=== PATIENT | male | born 1960 | race Caucasian/White ===

== ENCOUNTER 2017-04-12 15:33 | Inpatient (IN) | payer OTHER ==
[2017-04-12 15:54] LABS: I-STAT BLOOD UREA NITROGEN 12 MG/DL (5-21); I-STAT CHLORIDE 89 MMOL/L (102-111); I-STAT CREATININE 0.7 MG/DL (0.6-1.3); I-STAT GLUCOSE 214 MG/DL (68-110); I-STAT HEMOGLOBIN (CALC.) 13.6 G/DL (13.0-17.0); I-STAT POTASSIUM 3.5 MMOL/L (3.6-5.0); I-STAT SODIUM 130 MMOL/L (137-144)
[2017-04-12 15:55] LABS: AUTOMATED NEUTROPHIL # 18.5 TH/MM3 (1.8-7.7); BASOPHIL # 0.1 TH/MM3 (0-0.2); BASOPHIL % 0.4 % (0.0-2.0); HEMATOCRIT 40.6 % (39.0-51.0); HEMO FLAGS DIFF FINAL; HEMOGLOBIN 14.4 GM/DL (13.0-17.0); LYMPH % 4.2 % (9.0-44.0); LYMPHOCYTE # 0.8 TH/MM3 (1.0-4.8); MEAN CELL VOLUME 110.9 FL (80.0-100.0); MEAN CORPUSCULAR HEMOGLOBIN 39.3 PG (27.0-34.0); MEAN CORPUSCULAR HGB CONC 35.4 % (32.0-36.0); MEAN PLATELET VOLUME 7.7 FL (7.0-11.0); MONO % 3.9 % (0.0-8.0); MONOCYTE # 0.8 TH/MM3 (0-0.9); NEUT % 91.5 % (16.0-70.0); PLATELET COUNT 151 TH/MM3 (150-450); RED BLOOD COUNT 3.66 MIL/MM3 (4.50-5.90); RED CELL DISTRIBUTION WIDTH 15.6 % (11.6-17.2); WHITE BLOOD COUNT 20.2 TH/MM3 (4.0-11.0)
[2017-04-12] MEDS: IOHEXOL 350 MG/ML 10 ML VIAL (for RAD DIAG) IVCONTRAST (15:55)
[2017-04-12 16:06] LABS: APTT (PATIENT) 24.2 SEC (24.3-30.1); INTERNATIONAL NORMALIZED RATIO 1.1 RATIO; PROTHROMBIN TIME - PATIENT 10.9 SEC (9.8-11.6)
[2017-04-12 16:22] LABS: ALCOHOL LESS THAN 3 MG/DL (0-5)
[2017-04-12] MEDS: LORazepam 2 MG/ML VIAL ×2 (18:20)
[2017-04-12] MEDS ORDERED: LORazepam 2 MG/ML VIAL IV PUSH ×2 (21:15)
[2017-04-12] MEDS ORDERED: ONDANSETRON HCL 4 MG/2 ML VIAL IV PUSH (21:15)
[2017-04-12] MEDS ORDERED: FLUMAZENIL 0.5 MG/5 ML VIAL IV PUSH (21:15)
[2017-04-12] MEDS ORDERED: BISACODYL 10 MG SUPP RECTAL (21:15)
[2017-04-12] MEDS ORDERED: MAGNESIUM HYDROXIDE SUSP 30 ML CUP PO (21:15)
[2017-04-12] MEDS ORDERED: LORazepam 1 MG TAB PO (21:15)
[2017-04-12] MEDS ORDERED: RESP: ALBUTEROL 2.5 MG/IPRATROPIUM 0.5 MG NEB (PRN) INH (21:15)
[2017-04-12] MEDS: MISCELLANEOUS NURSING INFORMATION XX (21:15)
[2017-04-12] MEDS ORDERED: SODIUM CHLORIDE 0.9% FLUSH 10 ML FLUSH IV FLUSH (21:15)
[2017-04-12] MEDS ORDERED: CHLORHEXIDINE GLUCONATE 2 % 1 PACK (2 CLOTHS) TOP (21:15)
[2017-04-12] MEDS ORDERED: SENNOSIDES 8.6 MG TAB PO (21:15)
[2017-04-12] MEDS ORDERED: ACETAMINOPHEN 325 MG TAB PO (21:15)
[2017-04-12] MEDS ORDERED: LACTULOSE SYRUP 20 GM/30 ML CUP PO (21:15)
[2017-04-12] MEDS: SODIUM CHLOR 0.9% 1000 ML INJ 1,000 ML IV (21:57)
[2017-04-12] MEDS: HEPARIN SODIUM - SQ 10,000 UNITS/ML VIAL SQ (21:58)
[2017-04-12] MEDS: FOSPHENYTOIN INJ 1,000 MGPE in SODIUM CHLORIDE 0.9% INJ 50 ML IV (22:26)
[2017-04-12] MEDS: LORazepam 2 MG TAB PO (22:45)
[2017-04-12] MEDS: LORazepam 2 MG/ML VIAL IV PUSH ×5 (22:45→23:45)
[2017-04-12] MEDS: MORPHINE SULFATE 2 MG/ML INJ IV PUSH ×2 (23:10)
[2017-04-13] MEDS: LORazepam 2 MG/ML VIAL IV PUSH ×2 (00:43→02:49)
[2017-04-13] MEDS: MIDAZOLAM HCL 2 MG/2 ML VIAL IV PUSH (01:00)
[2017-04-13] MEDS: CHLORHEXIDINE GLUCONATE 2 % 1 PACK (2 CLOTHS) TOP (01:19)
[2017-04-13 03:31] LABS: MRSA PCR SURVEILLANCE MRSA NOT DETECTED (NOT DETECT)
[2017-04-13 04:27] LABS: HEMATOCRIT 36.4 % (39.0-51.0); HEMOGLOBIN 13.1 GM/DL (13.0-17.0); MEAN CELL VOLUME 111.7 FL (80.0-100.0); MEAN CORPUSCULAR HEMOGLOBIN 40.1 PG (27.0-34.0); MEAN CORPUSCULAR HGB CONC 35.9 % (32.0-36.0); MEAN PLATELET VOLUME 7.9 FL (7.0-11.0); PLATELET COUNT 102 TH/MM3 (150-450); RED BLOOD COUNT 3.26 MIL/MM3 (4.50-5.90); RED CELL DISTRIBUTION WIDTH 15.8 % (11.6-17.2); WHITE BLOOD COUNT 19.3 TH/MM3 (4.0-11.0)
[2017-04-13 04:33] LABS: APTT (PATIENT) 27.7 SEC (24.3-30.1); INTERNATIONAL NORMALIZED RATIO 1.1 RATIO; PROTHROMBIN TIME - PATIENT 11.1 SEC (9.8-11.6)
[2017-04-13 04:41] LABS: LACTIC ACID 1.9 mmol/L (0.4-2.0)
[2017-04-13 04:41] LABS: HEMO FLAGS AUTO DIFF
[2017-04-13 04:52] LABS: ALT (GPT) 27 U/L (12-78); ANION GAP 11 MEQ/L (5-15); AST (GOT) 60 U/L (15-37); BICARBONATE 27.1 MEQ/L (21.0-32.0); BLOOD UREA NITROGEN 20 MG/DL (7-18); CHLORIDE 98 MEQ/L (98-107); CREATININE 0.62 MG/DL (0.60-1.30); GLOMERULAR FILTRATION RATE 112 ML/MIN (>89); GLUCOSE,RANDOM 137 MG/DL (74-106); MAGNESIUM 1.2 MG/DL (1.5-2.5); PHOSPHORUS 2.8 MG/DL (2.5-4.9); SODIUM (NA) 136 MEQ/L (136-145)
[2017-04-13 04:55] LABS: ALKALINE PHOSPHATASE 85 U/L (45-117); TOTAL BILIRUBIN ADULT 3.5 MG/DL (0.2-1.0); TOTAL PROTEIN 5.7 GM/DL (6.4-8.2)
[2017-04-13] MEDS ORDERED: DEXMEDETOMIDINE INJ 200 MCG in SODIUM CHLORIDE 0.9% INJ 50 ML IV (05:15)
[2017-04-13] MEDS: SODIUM CHLOR 0.9% 1000 ML INJ 1,000 ML IV ×4 (05:54→21:15)
[2017-04-13] MEDS: HEPARIN SODIUM - SQ 10,000 UNITS/ML VIAL SQ ×3 (05:54→21:42)
[2017-04-13] MEDS: DEXMEDETOMIDINE 200 MCG in NS 48 ML IV ×2 (06:09→08:10)
[2017-04-13 06:53] LABS: BANDS 10 % (0-6); LYMPHOCYTES 1 % (9-44); METAMYELOCYTES 1 % (0-1); MONOCYTES 1 % (0-8); NEUTROPHIL # MANUAL DIFF 18.9 TH/MM3 (1.8-7.7); POLYS (SEG NEUTROPHILS) 87 % (16-70); WBC DIFF SAMPLE 100
[2017-04-13 06:54] LABS: PLATELET ESTIMATE SMEAR LOW (NORMAL); PLATELET MORPHOLOGY NORMAL (NORMAL); SCAN/DIFF FINAL DIFF MANUAL
[2017-04-13] MEDS: FAMOTIDINE 20 MG/2 ML VIAL IV PUSH ×2 (08:08→21:34)
[2017-04-13] MEDS: CYCLOBENZAPRINE HCL 10 MG TAB PO ×3 (08:10→18:22)
[2017-04-13] MEDS: DOCUSATE SODIUM 50 MG/SENNA 8.6 MG TAB PO ×2 (08:10→21:00)
[2017-04-13] MEDS: SODIUM CHLORIDE 0.9% FLUSH 10 ML FLUSH IV FLUSH ×2 (08:10→21:34)
[2017-04-13] MEDS: LISINOPRIL 20 MG TAB PO (08:10)
[2017-04-13] MEDS: POTASSIUM CHLOR 20 MEQ PREMIX 100 ML IV ×2 (14:30→18:54)
[2017-04-13] MEDS: MULTIVITAMIN INJ 10 ML in SODIUM CHLORID 0.9% 500 ML INJ 500 ML IV (15:00)
[2017-04-13] MEDS ORDERED: RESP: ALBUTEROL 2.5 MG/IPRATROPIUM 0.5 MG NEB (PRN) NEB (15:45)
[2017-04-13] MEDS ORDERED: MAGNESIUM SULFATE INJ 4 GM in SODIUM CHLORIDE 0.9% INJ 92 ML IV (15:45)
[2017-04-13] MEDS ORDERED: POTASSIUM PHOSPHATE MONOBASIC 500 MG TAB PO (15:45)
[2017-04-13] MEDS ORDERED: POTASSIUM CHLOR 40 MEQ PREMIX 100 ML IV ×2 (15:45)
[2017-04-13] MEDS ORDERED: POTASSIUM PHOSPHATE MONOBASIC 500 MG TAB PO/TUBE (15:45)
[2017-04-13] MEDS ORDERED: POTASSIUM CHLOR 20 MEQ PREMIX 100 ML IV (15:45)
[2017-04-13] MEDS ORDERED: SODIUM PHOSPHATE INJ 30 MMOL in SODIUM CHLOR 0.9% 250 ML INJ 240 ML IV (15:45)
[2017-04-13] MEDS ORDERED: POTASSIUM PHOSPHATE INJ 30 MMOL in SODIUM CHLOR 0.9% 250 ML INJ 250 ML IV (15:45)
[2017-04-13] MEDS: ETOMIDATE 40 MG/20 ML VIAL (16:03)
[2017-04-13] MEDS: MIDAZOLAM HCL 5 MG/ML VIAL (1 ML) (16:04)
[2017-04-13] MEDS: MIDAZOLAM HCL 5 MG/5 ML VIAL IV PUSH (16:12)
[2017-04-13] MEDS: ETOMIDATE 20 MG/10 ML VIAL IV PUSH (16:12)
[2017-04-13] MEDS: ROCURONIUM INJ 50 MG/5 ML VIAL IV (16:12)
[2017-04-13] MEDS: PROPOFOL 500 MG/50 ML INJ 50 ML ×2 (16:20→19:01)
[2017-04-13] MEDS ORDERED: PROPOFOL 1000 MG/100 ML INJ 100 ML IV (16:30)
[2017-04-13] MEDS ORDERED: MIDAZOLAM 100 MG/100 ML INJ 100 ML IV (16:30)
[2017-04-13] MEDS: RESP: ALBUTEROL 2.5 MG/IPRATROPIUM 0.5 MG NEB (SCH) NEB ×2 (17:00→20:39)
[2017-04-13 17:04] LABS: BLOOD GAS BASE EXCESS -0.4 mmol/L (-2-2); BLOOD GAS CARBOXYHEMOGLOBIN 1.7 % (0-4); BLOOD GAS HCO3 24 mmol/L (22-26); BLOOD GAS METHEMOGLOBIN 0.9 % (0-2); BLOOD GAS O2 HGB SATURATION 98 % (90-100); BLOOD GAS OXYGEN CONTENT 15.3 Vol % (12.0-20.0); BLOOD GAS PCO2 38 mmHg (38-42); BLOOD GAS PO2 253 mmHg (61-120); BLOOD GAS TOTAL HGB 10.8 G/DL (12.0-16.0); CRITICAL VALUE NO; OXYGEN DEVICE VENTILATOR; TEMP CORR TO 98.6
[2017-04-13 17:05] LABS: DRAW SITE RT RADIAL; FIO2 100 %; NUMBER OF ARTERIAL PUNCTURES 1; STAT NO; ULNAR PULSE PRESENT
[2017-04-13] MEDS: PIPERACIL-TAZO 4.5 GM PREMIX 100 ML IV ×2 (18:22→22:59)
[2017-04-13 18:35] LABS: MAGNESIUM 1.6 MG/DL (1.5-2.5)
[2017-04-13 18:35] LABS: PHOSPHORUS 2.3 MG/DL (2.5-4.9)
[2017-04-13 18:41] LABS: AMORPHOUS SEDIMENT, URINE RARE; BACTERIA, URINE RARE /hpf; BILIRUBIN, URINE NEG (NEG); BLOOD, URINE NEG (NEG); GLUCOSE,URINE NEG (NEG); KETONE, URINE 80 mg/dL (NEG); MUCUS URINE FEW /lpf (OCC); NITRITE,URINE NEG (NEG); URINE COLOR YELLOW (YELLW/STRAW); URINE LEUKOCYTE ESTERASE SMALL (NEG)
[2017-04-13 18:42] LABS: COMMENT (UR) CATH-CULTURE IND; CREATINE KINASE 451 U/L (39-308); CULTURE IF INDICATED CATH CULTURE IND
[2017-04-13 19:01] LABS: CKMB 5.8 NG/ML (0.5-3.6); CKMB % 1.3 % (0.0-4.0)
[2017-04-13] MEDS: CHLORHEXIDINE 0.12% (ORAL KIT) 15 ML CUP MT (21:36)
[2017-04-13] MEDS: PROPOFOL 1000 MG/100 ML IV (21:55)
[2017-04-14] MEDS: PROPOFOL 1000 MG/100 ML IV ×4 (03:09→22:10)
[2017-04-14] MEDS: CHLORHEXIDINE GLUCONATE 2 % 1 PACK (2 CLOTHS) TOP (03:10)
[2017-04-14] MEDS: SODIUM CHLOR 0.9% 1000 ML INJ 1,000 ML IV ×2 (04:00→14:00)
[2017-04-14] MEDS: PIPERACIL-TAZO 4.5 GM PREMIX 100 ML IV ×4 (04:42→23:00)
[2017-04-14] MEDS: RESP: ALBUTEROL 2.5 MG/IPRATROPIUM 0.5 MG NEB (SCH) NEB ×4 (04:55→21:11)
[2017-04-14] MEDS: HEPARIN SODIUM - SQ 10,000 UNITS/ML VIAL SQ ×3 (06:00→22:00)
[2017-04-14] MEDS: FAMOTIDINE 20 MG/2 ML VIAL IV PUSH ×2 (08:18→21:23)
[2017-04-14] MEDS: CYCLOBENZAPRINE HCL 10 MG TAB PO ×3 (08:18→18:31)
[2017-04-14] MEDS: DOCUSATE SODIUM 50 MG/SENNA 8.6 MG TAB PO ×2 (08:18→21:00)
[2017-04-14] MEDS: LISINOPRIL 20 MG TAB PO (08:18)
[2017-04-14] MEDS: CHLORHEXIDINE 0.12% (ORAL KIT) 15 ML CUP MT ×2 (08:19→20:00)
[2017-04-14] MEDS: SODIUM CHLORIDE 0.9% FLUSH 10 ML FLUSH IV FLUSH ×2 (08:19→21:00)
[2017-04-14 08:47] LABS: PHOSPHORUS 2.8 MG/DL (2.5-4.9)
[2017-04-14 08:47] LABS: MAGNESIUM 1.3 MG/DL (1.5-2.5)
[2017-04-14] MEDS: chlordiazePOXIDE 25 MG CAP PO ×3 (09:59→18:31)
[2017-04-14 10:12] LABS: POTASSIUM 2.7 MEQ/L (3.5-5.1)
[2017-04-14] MEDS: POTASSIUM CHLOR 20 MEQ PREMIX 100 ML IV ×2 (10:51→19:30)
[2017-04-14] MEDS: MAGNESIUM SULFATE INJ 2 GM in SODIUM CHLORIDE 0.9% INJ 96 ML IV (12:56)
[2017-04-14] MEDS: LORazepam 2 MG/ML VIAL IV PUSH (19:30)
[2017-04-15] MEDS: SODIUM CHLOR 0.9% 1000 ML INJ 1,000 ML IV ×4 (00:29→21:06)
[2017-04-15] MEDS: CHLORHEXIDINE GLUCONATE 2 % 1 PACK (2 CLOTHS) TOP (02:16)
[2017-04-15] MEDS: PROPOFOL 1000 MG/100 ML IV ×2 (02:21→07:52)
[2017-04-15] MEDS: POTASSIUM CHLOR 20 MEQ PREMIX 100 ML IV (02:24)
[2017-04-15] MEDS: MIDAZOLAM HCL 2 MG/2 ML VIAL IV PUSH (03:14)
[2017-04-15] MEDS: RESP: ALBUTEROL 2.5 MG/IPRATROPIUM 0.5 MG NEB (SCH) NEB ×4 (03:55→21:41)
[2017-04-15] MEDS: HEPARIN SODIUM - SQ 10,000 UNITS/ML VIAL SQ ×3 (04:53→21:12)
[2017-04-15] MEDS: PIPERACIL-TAZO 4.5 GM PREMIX 100 ML IV ×2 (04:53→10:30)
[2017-04-15 04:56] LABS: ANION GAP 11 MEQ/L (5-15); BICARBONATE 23.8 MEQ/L (21.0-32.0); CALCIUM 8.1 MG/DL (8.5-10.1); CHLORIDE 103 MEQ/L (98-107); CREATININE 0.63 MG/DL (0.60-1.30); GAMMA GT 198 U/L (15-85); GLOMERULAR FILTRATION RATE 133 ML/MIN (>89); GLUCOSE,RANDOM 83 MG/DL (74-106); SODIUM (NA) 138 MEQ/L (136-145)
[2017-04-15 04:58] LABS: BLOOD UREA NITROGEN 5 MG/DL (7-18)
[2017-04-15] MEDS: chlordiazePOXIDE 25 MG CAP PO ×3 (07:53→17:35)
[2017-04-15] MEDS: SODIUM CHLORIDE 0.9% FLUSH 10 ML FLUSH IV FLUSH ×2 (07:53→21:00)
[2017-04-15] MEDS: CYCLOBENZAPRINE HCL 10 MG TAB PO ×3 (07:53→17:35)
[2017-04-15] MEDS: CHLORHEXIDINE 0.12% (ORAL KIT) 15 ML CUP MT ×2 (07:53→20:00)
[2017-04-15] MEDS: LISINOPRIL 20 MG TAB PO (07:53)
[2017-04-15] MEDS: FAMOTIDINE 20 MG/2 ML VIAL IV PUSH ×2 (07:53→21:07)
[2017-04-15] MEDS: DOCUSATE SODIUM 50 MG/SENNA 8.6 MG TAB PO ×2 (08:26→20:57)
[2017-04-15] MEDS: CLINDAMYCIN 600 MG/NS PREMIX 50 ML IV ×2 (13:23→21:07)
[2017-04-15] MEDS: LORazepam 2 MG/ML VIAL IV PUSH (17:50)
[2017-04-16] MEDS: CHLORHEXIDINE GLUCONATE 2 % 1 PACK (2 CLOTHS) TOP (01:06)
[2017-04-16] MEDS: RESP: ALBUTEROL 2.5 MG/IPRATROPIUM 0.5 MG NEB (SCH) NEB ×4 (04:00→21:54)
[2017-04-16] MEDS: CLINDAMYCIN 600 MG/NS PREMIX 50 ML IV (06:07)
[2017-04-16] MEDS: HEPARIN SODIUM - SQ 10,000 UNITS/ML VIAL SQ ×3 (06:08→22:02)
[2017-04-16] MEDS: SODIUM CHLOR 0.9% 1000 ML INJ 1,000 ML IV ×3 (06:08→23:16)
[2017-04-16 06:27] LABS: ANION GAP 12 MEQ/L (5-15); BICARBONATE 26.3 MEQ/L (21.0-32.0); BLOOD UREA NITROGEN 3 MG/DL (7-18); CALCIUM 8.2 MG/DL (8.5-10.1); CHLORIDE 102 MEQ/L (98-107); CREATININE 0.52 MG/DL (0.60-1.30); GLOMERULAR FILTRATION RATE 166 ML/MIN (>89); GLUCOSE,RANDOM 93 MG/DL (74-106); MAGNESIUM 1.5 MG/DL (1.5-2.5); PHOSPHORUS 2.6 MG/DL (2.5-4.9); SODIUM (NA) 140 MEQ/L (136-145)
[2017-04-16 06:30] LABS: POTASSIUM 2.6 MEQ/L (3.5-5.1)
[2017-04-16] MEDS: POTASSIUM CHLOR 20 MEQ PREMIX 100 ML IV ×2 (06:40→10:39)
[2017-04-16] MEDS: CHLORHEXIDINE 0.12% (ORAL KIT) 15 ML CUP MT ×2 (08:00→20:00)
[2017-04-16] MEDS: LISINOPRIL 20 MG TAB PO (08:54)
[2017-04-16] MEDS: FAMOTIDINE 20 MG/2 ML VIAL IV PUSH ×2 (08:55→20:48)
[2017-04-16] MEDS: SODIUM CHLORIDE 0.9% FLUSH 10 ML FLUSH IV FLUSH ×2 (08:55→20:48)
[2017-04-16] MEDS: CYCLOBENZAPRINE HCL 10 MG TAB PO ×3 (08:55→15:40)
[2017-04-16] MEDS: chlordiazePOXIDE 25 MG CAP PO ×3 (08:55→15:40)
[2017-04-16] MEDS: DOCUSATE SODIUM 50 MG/SENNA 8.6 MG TAB PO ×2 (08:55→20:48)
[2017-04-16] MEDS: CLINDAMYCIN 900 MG/NS PREMIX 50 ML IV ×2 (12:02→20:48)
[2017-04-16] MEDS: FUROSEMIDE 20 MG/2 ML VIAL IV PUSH (12:02)
[2017-04-17] MEDS: CLINDAMYCIN 900 MG/NS PREMIX 50 ML IV ×3 (03:13→22:36)
[2017-04-17] MEDS: CHLORHEXIDINE GLUCONATE 2 % 1 PACK (2 CLOTHS) TOP (03:13)
[2017-04-17] MEDS: RESP: ALBUTEROL 2.5 MG/IPRATROPIUM 0.5 MG NEB (SCH) NEB ×5 (04:00→21:02)
[2017-04-17] MEDS: HEPARIN SODIUM - SQ 10,000 UNITS/ML VIAL SQ ×3 (05:11→22:31)
[2017-04-17 05:23] LABS: AUTOMATED NEUTROPHIL # 3.4 TH/MM3 (1.8-7.7); BASOPHIL % 0.6 % (0.0-2.0); EOSINOPHIL # 0.2 TH/MM3 (0-0.4); HEMATOCRIT 26.9 % (39.0-51.0); HEMOGLOBIN 9.8 GM/DL (13.0-17.0); LYMPH % 18.5 % (9.0-44.0); MEAN CELL VOLUME 111.1 FL (80.0-100.0); MEAN CORPUSCULAR HEMOGLOBIN 40.5 PG (27.0-34.0); MEAN PLATELET VOLUME 6.4 FL (7.0-11.0); MONO % 16.7 % (0.0-8.0); MONOCYTE # 0.9 TH/MM3 (0-0.9); NEUT % 61.2 % (16.0-70.0); PLATELET COUNT 201 TH/MM3 (150-450); RED BLOOD COUNT 2.42 MIL/MM3 (4.50-5.90); RED CELL DISTRIBUTION WIDTH 15.5 % (11.6-17.2); WHITE BLOOD COUNT 5.5 TH/MM3 (4.0-11.0)
[2017-04-17 05:31] LABS: HEMO FLAGS AUTO DIFF; MEAN CORPUSCULAR HGB CONC 36.4 % (32.0-36.0)
[2017-04-17 06:05] LABS: ANION GAP 8 MEQ/L (5-15); BICARBONATE 30.2 MEQ/L (21.0-32.0); BLOOD UREA NITROGEN 5 MG/DL (7-18); CALCIUM 8.2 MG/DL (8.5-10.1); CHLORIDE 101 MEQ/L (98-107); CREATININE 0.65 MG/DL (0.60-1.30); GLOMERULAR FILTRATION RATE 128 ML/MIN (>89); GLUCOSE,RANDOM 111 MG/DL (74-106); SODIUM (NA) 139 MEQ/L (136-145)
[2017-04-17 06:10] LABS: POTASSIUM 2.8 MEQ/L (3.5-5.1)
[2017-04-17] MEDS: CHLORHEXIDINE 0.12% (ORAL KIT) 15 ML CUP MT (07:14)
[2017-04-17] MEDS: SODIUM CHLORIDE 0.9% FLUSH 10 ML FLUSH IV FLUSH ×2 (07:14→22:31)
[2017-04-17] MEDS: POTASSIUM CHLORIDE 25 MEQ EFFERVESCENT TAB PO (07:16)
[2017-04-17] MEDS: MAGNESIUM OXIDE 400 MG TAB PO (07:16)
[2017-04-17] MEDS: chlordiazePOXIDE 25 MG CAP PO ×3 (07:18→17:46)
[2017-04-17] MEDS: DOCUSATE SODIUM 50 MG/SENNA 8.6 MG TAB PO ×2 (07:18→22:30)
[2017-04-17] MEDS: LISINOPRIL 20 MG TAB PO (07:18)
[2017-04-17] MEDS: FAMOTIDINE 20 MG/2 ML VIAL IV PUSH (07:19)
[2017-04-17] MEDS: CYCLOBENZAPRINE HCL 10 MG TAB PO ×3 (07:19→17:46)
[2017-04-17 08:03] LABS: BANDS 12 % (0-6); CORRECTED NUCLEATED RBC 1 /100 WBC (0-0); LYMPHOCYTES 31 % (9-44); METAMYELOCYTES 2 % (0-1); MONOCYTES 11 % (0-8); NEUTROPHIL # MANUAL DIFF 3.2 TH/MM3 (1.8-7.7); NUCLEATED RED BLOOD CELL 1 (0-0); POLYS (SEG NEUTROPHILS) 44 % (16-70); WBC DIFF SAMPLE 100
[2017-04-17 08:04] LABS: PLATELET ESTIMATE SMEAR NORMAL (NORMAL); PLATELET MORPHOLOGY NORMAL (NORMAL); SCAN/DIFF FINAL DIFF MANUAL
[2017-04-17] MEDS: FAMOTIDINE 20 MG TAB PO ×2 (09:00→22:31)
[2017-04-17] MEDS: FOLIC ACID 1 MG TAB PO (10:05)
[2017-04-17] MEDS: THIAMINE HCL 100 MG TAB PO (10:05)
[2017-04-17] MEDS: MULTIVITAMINS/MINERALS THERAPEUTIC TAB PO (10:05)
[2017-04-17] MEDS: SODIUM CHLOR 0.9% 1000 ML INJ 1,000 ML IV (10:57)
[2017-04-17] MEDS: POTASSIUM CHLORIDE 20 MEQ CONTROLLED RELEASE TAB PO ×2 (12:10→15:20)
[2017-04-17 12:34] LABS: MAGNESIUM 1.4 MG/DL (1.5-2.5)
[2017-04-17] MEDS: guaiFENesin E.R. 600 MG TAB PO ×2 (12:38→22:30)
[2017-04-17] MEDS: MAGNESIUM SULFATE 1 GM PREMIX 100 ML IV ×2 (15:19→15:23)
[2017-04-17] MEDS: TEMAZEPAM 15 MG CAP PO (22:31)
[2017-04-18] MEDS: RESP: ALBUTEROL 2.5 MG/IPRATROPIUM 0.5 MG NEB (SCH) NEB ×2 (04:22→09:34)
[2017-04-18] MEDS: CLINDAMYCIN 900 MG/NS PREMIX 50 ML IV ×2 (04:34→11:14)
[2017-04-18] MEDS: HEPARIN SODIUM - SQ 10,000 UNITS/ML VIAL SQ (06:46)
[2017-04-18] MEDS: THIAMINE HCL 100 MG TAB PO (07:19)
[2017-04-18] MEDS: guaiFENesin E.R. 600 MG TAB PO (07:19)
[2017-04-18] MEDS: DOCUSATE SODIUM 50 MG/SENNA 8.6 MG TAB PO (07:19)
[2017-04-18] MEDS: FAMOTIDINE 20 MG TAB PO (07:19)
[2017-04-18] MEDS: chlordiazePOXIDE 25 MG CAP PO ×2 (07:19→12:09)
[2017-04-18] MEDS: MULTIVITAMINS/MINERALS THERAPEUTIC TAB PO (07:19)
[2017-04-18] MEDS: LISINOPRIL 20 MG TAB PO (07:19)
[2017-04-18] MEDS: CYCLOBENZAPRINE HCL 10 MG TAB PO ×2 (07:19→12:09)
[2017-04-18] MEDS: FOLIC ACID 1 MG TAB PO (07:19)
[2017-04-18] MEDS: SODIUM CHLORIDE 0.9% FLUSH 10 ML FLUSH IV FLUSH (07:20)
[2017-04-18 08:54] LABS: AUTOMATED NEUTROPHIL # 3.4 TH/MM3 (1.8-7.7); BASOPHIL % 0.7 % (0.0-2.0); EOSINOPHIL # 0.1 TH/MM3 (0-0.4); EOSINOPHIL % 2.4 % (0.0-4.0); HEMATOCRIT 29.8 % (39.0-51.0); HEMOGLOBIN 10.6 GM/DL (13.0-17.0); LYMPH % 18.4 % (9.0-44.0); MEAN CELL VOLUME 110.8 FL (80.0-100.0); MEAN CORPUSCULAR HEMOGLOBIN 39.5 PG (27.0-34.0); MEAN CORPUSCULAR HGB CONC 35.6 % (32.0-36.0); MEAN PLATELET VOLUME 6.5 FL (7.0-11.0); MONO % 15.5 % (0.0-8.0); MONOCYTE # 0.8 TH/MM3 (0-0.9); PLATELET COUNT 288 TH/MM3 (150-450); RED BLOOD COUNT 2.69 MIL/MM3 (4.50-5.90); RED CELL DISTRIBUTION WIDTH 15.3 % (11.6-17.2); WHITE BLOOD COUNT 5.4 TH/MM3 (4.0-11.0)
[2017-04-18 08:58] LABS: HEMO FLAGS AUTO DIFF
[2017-04-18 09:32] LABS: ANION GAP 8 MEQ/L (5-15); BICARBONATE 27.7 MEQ/L (21.0-32.0); BLOOD UREA NITROGEN 5 MG/DL (7-18); CALCIUM 8.8 MG/DL (8.5-10.1); CHLORIDE 101 MEQ/L (98-107); CREATININE 0.73 MG/DL (0.60-1.30); GLOMERULAR FILTRATION RATE 112 ML/MIN (>89); GLUCOSE,RANDOM 138 MG/DL (74-106); SODIUM (NA) 137 MEQ/L (136-145)
[2017-04-18 09:33] LABS: POTASSIUM 3.1 MEQ/L (3.5-5.1)
[2017-04-18 09:38] LABS: PLATELET ESTIMATE SMEAR NORMAL (NORMAL); PLATELET MORPHOLOGY NORMAL (NORMAL); SCAN/DIFF AUTO DIFF CONFIRMED
[2017-04-18] MEDS: POTASSIUM CHLORIDE 20 MEQ CONTROLLED RELEASE TAB PO (11:10)
[2017-04-18] MEDS: NYSTAT/DIPHENHY/LIDO MOUTHWASH (Adult) 120ML SWISH-SWAL (12:09)
== END 2017-04-18 13:59 | disposition home or self-care (01) | DRG 896 ==
LOC: N05B 04-17 03:45 → NEPI 15:33 → N03B 04-16 16:00 → NEDA 18:50 → N03B 22:43
PROC: 0BH17EZ Insertion of Endotracheal Airway into Trachea, Via Natural or Artificial Opening (ICD-10-PCS; 2017-04-12)
PROC: 5A1945Z Respiratory Ventilation, 24-96 Consecutive Hours (ICD-10-PCS; principal; 2017-04-13)
DX: F10.239 Alcohol dependence with withdrawal, unspecified (principal); J96.01 Acute respiratory failure with hypoxia; J69.0 Pneumonitis due to inhalation of food and vomit; S01.512A Laceration without foreign body of oral cavity, initial encounter; D64.9 Anemia, unspecified; N39.0 Urinary tract infection, site not specified; I10 Essential (primary) hypertension; R56.9 Unspecified convulsions; R15.9 Full incontinence of feces; B95.61 Methicillin susceptible Staphylococcus aureus infection as the cause of diseases classified elsewhere; R00.0 Tachycardia, unspecified; R40.2410 Glasgow coma scale score 13-15, unspecified time; E87.6 Hypokalemia; V43.52XA Car driver injured in collision with other type car in traffic accident, initial encounter; Y90.0 Blood alcohol level of less than 20 mg/100 ml; Y92.410 Unspecified street and highway as the place of occurrence of the external cause; Z79.899 Other long term (current) drug therapy
CPT/HCPCS: 31500; 36600; 70450; 71045; 71260; 72125; 72170; 74177; 80048; 80053; 80307; 81001; 82550; 82552; 82805; 82977; 83605; 83735; 84100; 84132; 85007; 85025; 85027; 85610; 85730; 86403; 86850; 86900; 86901; 87070; 87077; 87086; 87147; 87186; 87205; 87641; 92610-GN; 93005; 94002; 94003; 94150; 94618; 94640; 94664; 95819; 96125-GN; 96374; 97110-GP; 97116-GP; 97162-GP; 97164-GP; 97166-GO; 99285-25